=== PATIENT | female | born 1970 | race Caucasian/White ===

== ENCOUNTER 2018-04-15 11:39 | Emergency (ER) | payer MEDICAID ==
--- NOTE | 2018-04-15 12:21 | EDM.PDOC ---
ED HPI GENERAL MEDICAL PROBLEM - General Chief Complaint: General Stated Complaint: HIGH BLOOD PRESSURE Time Seen by Provider: 04/15/18 11:55 Source of Information: Reports: Patient History Limitations: Reports: No Limitations - History of Present Illness INITIAL COMMENTS - FREE TEXT/NARRATIVE: Pt comes into Emergency department for she has ran out of her blood pressure medications. Patient has a strong history of complications related to hypertension. She's had 2 brain aneurysms with coiling completed as well. She states that she ran out of medications last night and she's noted that her blood pressure is elevated. The surgeons have told her before that she's not to get her blood pressure over 200. She presents herself to emergency department for medication refill for she no other refills and does not have an appointment until . Pt denies feeling ill, dizziness, lightheadedness, blurred vision, or syncopal episodes. Onset: Gradual Quality: Reports: Other Severity: Mild Improves with: Reports: None Worsens with: Reports: None Associated Symptoms: Reports: No Other Symptoms Back Pain Score (Numeric/FACES): 8 - Related Data Allergies Allergy/AdvReac Type Severity Reaction Status Date / Time amlodipine [From Norvasc] Allergy Other Verified 04/15/18 12:13 ketorolac tromethamine Allergy Hives Verified 04/15/18 12:11 [From Toradol] lisinopril Allergy Other Verified 04/15/18 12:13 Penicillins Allergy Hives Verified 04/15/18 12:11 propoxyphene napsylate Allergy Hives Verified 04/15/18 12:11 [From Darvocet-N] tramadol Allergy Hives Verified 04/15/18 12:11 acetaminophen AdvReac Other Verified 04/15/18 12:12 [From Darvocet-N] Home Meds: Home Meds Carvedilol [Coreg] 25 mg PO BID 04/15/18 [History] Carvedilol [Coreg] 25 mg PO BID 7 Days #14 tablet 04/15/18 [Rx] cloNIDine HCl [Catapres] 0.3 mg PO TID 04/15/18 [History] cloNIDine HCl [Catapres] 0.3 mg PO TID #21 tablet 04/15/18 [Rx] hydrALAZINE [Apresoline] 25 mg PO TID 04/15/18 [History] hydrALAZINE [Apresoline] 25 mg PO TID 7 Days #21 tablet 04/15/18 [Rx] levETIRAcetam [Keppra] 1,000 mg PO DAILY 04/15/18 [History] levETIRAcetam [Keppra] 500 mg PO BEDTIME 04/15/18 [History] Past Medical History Cardiovascular History: Reports: Hypertension Gastrointestinal History: Reports: Pancreatitis Neurological History: Reports: Cerebral Aneurysms, Seizure Endocrine/Metabolic History: Reports: Osteoporosis - Past Surgical History GI Surgical History: Reports: Cholecystectomy Female Surgical History: Reports: Hysterectomy, Salpingo-Oophorectomy Neurological Surgical History: Reports: Other (See Below) Other Neurological Surgeries/Procedures: Coil placed for aneurysm Musculoskeletal Surgical History: Reports: Shoulder Surgery Other Musculoskeletal Surgeries/Procedures:: Left Shoulder rotator cuff repair Social & Family History - Tobacco Use Smoking Status *Q: Current Every Day Smoker Years of Tobacco use: 20 Packs/Tins Daily: 0.2 - Recreational Drug Use Recreational Drug Use: No ED ROS GENERAL - Review of Systems Review Of Systems: See Below Constitutional: Reports: No Symptoms HEENT: Reports: No Symptoms Respiratory: Reports: No Symptoms Cardiovascular: Reports: No Symptoms Endocrine: Reports: No Symptoms GI/Abdominal: Reports: No Symptoms : Reports: No Symptoms Musculoskeletal: Reports: No Symptoms Skin: Reports: No Symptoms Neurological: Reports: No Symptoms Psychiatric: Reports: No Symptoms Hematologic/Lymphatic: Reports: No Symptoms Immunologic: Reports: No Symptoms ED EXAM, GENERAL - Physical Exam Exam: See Below Exam Limited By: No Limitations General Appearance: Alert, WD/WN, No Apparent Distress Head: Atraumatic, Normocephalic Respiratory/Chest: No Respiratory Distress, Lungs Clear, Normal Breath Sounds, No Accessory Muscle Use Cardiovascular: Normal Peripheral Pulses, Regular Rate, Rhythm GI/Abdominal: Normal Bowel Sounds, No Distention, No Abnormal Bruit Back Exam: Normal Inspection, Full Range of Motion Extremities: Normal Inspection, Normal Range of Motion, Normal Capillary Refill Neurological: Alert, Oriented, CN II-XII Intact, Normal Reflexes Psychiatric: Normal Affect, Normal Mood Skin Exam: Warm, Dry, Intact, Normal Color, No Rash Course - Vital Signs Last Recorded V/S: Last Vital Signs Temp 35.6 C 04/15/18 11:46 Pulse 80 04/15/18 11:46 Resp 16 04/15/18 11:46 BP 153/99 H 04/15/18 11:46 Pulse Ox 99 04/15/18 11:46 Departure - Departure Time of Disposition: 12:20 Disposition: Home, Self-Care 01 Condition: Good Clinical Impression: Hypertension Qualifiers: Hypertension type: unspecified Qualified Code(s): I10 - Essential (primary) hypertension - Discharge Information Prescriptions: Carvedilol [Coreg] 25 mg PO BID 7 Days #14 tablet cloNIDine HCl [Catapres] 0.3 mg PO TID #21 tablet hydrALAZINE [Apresoline] 25 mg PO TID 7 Days #21 tablet Instructions: Hypertension Additional Instructions: 1. follow up with PCP to have the rest of your prescription filled. 2. Return if symptoms worsen 3. Activity and diet as tolerated - Problem List Review Problem List Initiated/Reviewed/Updated: Yes - Assessment/Plan Assessment:: 1. out of medications Plan: 1. refill medications for 7 days until she can be seen by her PCP. 2. Education provided regarding contact PCP prior to running out of medications 3. Information regarding follow up provided and when to return to the ER if symptoms progress.
== END 2018-04-15 12:19 | disposition home or self-care (01) ==
LOC: VM.ED 11:39
DX: Z76.0 Encounter for issue of repeat prescription (principal); I10 Essential (primary) hypertension; F17.210 Nicotine dependence, cigarettes, uncomplicated; Z88.5 Allergy status to narcotic agent; Z88.8 Allergy status to other drugs, medicaments and biological substances; Z79.899 Other long term (current) drug therapy
CPT/HCPCS: 99283; 99283-GF